=== PATIENT | female | born 1965 | race Caucasian/White ===

== ENCOUNTER → 2016-07-15 | Outpatient (CLI) | payer BC ==
--- NOTE | 2016-07-15 14:33 | MAMMOGRAPHY REPORT ---
BILATERAL DIGITAL DIAGNOSTIC MAMMOGRAM TOMOSYNTHESIS WITH CAD AND TARGETED RIGHT ULTRASOUND: 07/16/19 CLINICAL HISTORY: 50-year-old woman presents for follow-up of a small focal asymmetry in the 4:00 ri ght breast, and also follow-up after benign biopsies in the left breast. Bilateral screening mammog ortiz. TECHNIQUE: Bilateral breast tomosynthesis in addition to standard 2D mammography was performed. Curr ent study was also evaluated with a Computer Aided Detection (CAD) system. COMPARISON: Comparison is made to exams dated: 01/13/2016 mammogram, 06/16/2015 mammogram, and 06/09/19 16 mammogram - [facility]. BREAST COMPOSITION: There are scattered areas of fibroglandular density in both breasts. FINDINGS: The parenchymal pattern is similar to prior exams. There is a stable subcentimeter circu mscribed mass in the upper outer posterior right breast. There are stable microcalcifications throu ghout the right breast. The focal asymmetry in the 4:00 middle one third of the right breast is no longer seen, confirming benignity. There are 2 stable metallic biopsy markers in the upper outer an terior left breast. Stable regional microcalcifications in the upper outer quadrant of the left irvin ast. No new suspicious mass, architectural distortion or cluster of microcalcifications is seen bruce aterally. Repeat targeted ultrasound was performed in the 4:00 right breast in the area of probable, located c yst seen on prior ultrasound. No mass is identified on the current exam, concordant with the mammog raphic findings and also confirming benignity. The previously observed asymmetry most likely repres ented a fluctuating cyst. IMPRESSION: ACR BI-RADS CATEGORY 2: BENIGN, TARGETED ULTRASOUND ACR BI-RADS CATEGORY 2: BENIGN Resolution of the small focal asymmetry in the 4:00 right breast both mammographically and sonograph ically, confirming benignity. There is no mammographic or targeted sonographic evidence of malignan cy. A 1 year screening mammogram is recommended. The patient has been verbally notified of the resu lts. Approximately 10% of breast cancers are not detected with mammography. A negative mammographic repor t should not delay biopsy if a clinically suggestive mass is present. Rosa Almaraz M.D. ay/:07/15/2016 12:36:56 copy to: Natan Shoemaker M.D. Pool Technician: Ana AYALA(R)(M), [facility] letter sent: Normal 1/2 BI-RADS Code: ACR BI-RADS Category 2: Benign Ultrasound BI-RADS: ACR BI-RADS Category 2: Benign
== END | disposition home or self-care (01) ==
LOC: C.MAMM 10:28
PROVIDERS: ATTEND Surgery
DX: N64.89 Other specified disorders of breast (principal)